=== PATIENT | female | born 1940 | race Caucasian/White ===

== ENCOUNTER 2018-08-13 23:12 | Inpatient (IN) | payer BC, OTHER ==
[~2018-08-13] VITALS: Ht 157.5 cm; Wt 52.2 kg
[~2018-08-13 23:12] MED LIST: CLON1TAB PO; DOXE50CA21 PO; ESTR2TAB PO; METO100T7 PO
[2018-08-13] MEDS ORDERED: IV NORMAL SALINE 500 ML BAG IV ONE (23:45)
[2018-08-13 23:58] LABS: BASOPHILS % (AUTO) 0.4 % (0.0-2.0); HEMATOCRIT 36.3 % (31.2-41.9); HEMOGLOBIN 12.1 g/dL (10.9-14.3); LYMPHOCYTES # (AUTO) 0.6 K/uL (20.0-40.0); LYMPHOCYTES % (AUTO) 5.6 % (20.5-51.5); MEAN CORPUSCULAR HEMOGLOBIN 30.7 uug (24.7-32.8); MEAN CORPUSCULAR HGB CONC 33 g/dL (32.3-35.6); MEAN CORPUSCULAR VOLUME 92.4 fL (75.5-95.3); MONOCYTES # (AUTO) 1.3 K/uL (2.0-10.0); MONOCYTES % (AUTO) 11.2 % (0.0-11.0); NEUTROPHILS # (AUTO) 9.5 K/uL (1.8-8.9); NEUTROPHILS % (AUTO) 82.8 % (38.5-71.5); PLATELET COUNT (AUTO) 305 K/uL (179-408); RED BLOOD CELL COUNT(AUTO) 3.93 MIL/uL (3.63-4.92); WHITE BLOOD COUNT (AUTO) 11.5 K/uL (3.8-11.8)
[2018-08-14 00:09] LABS: CARBON DIOXIDE 26 mmol/L (21-32); CHLORIDE 98 mmol/L (98-107); CREATININE 0.9 mg/dL (0.6-1.3); GLUCOSE 134 mg/dL (74-106); POTASSIUM 3.7 mmol/L (3.5-5.1); UREA NITROGEN, BLOOD 10 mg/dL (7-18)
[2018-08-14 00:15] LABS: ALANINE AMINOTRANSFERASE 25 U/L (14-59); ALKALINE PHOSPHATASE 89 U/L (50-136); ASPARTATE AMINOTRANSFERASE 25 U/L (15-37); BILIRUBIN,DIRECT 0.1 mg/dL (0.0-0.2); BILIRUBIN,TOTAL 0.4 mg/dL (0.2-1.0); TOTAL PROTEIN, SERUM 7.7 g/dL (6.4-8.2)
[2018-08-14 01:19] LABS: *BILIRUBIN,URIN NEGATIVE (NEGATIVE); *CLARITY,URINE CLEAR (CLEAR); *COLOR,URINE YELLOW (YELLOW); *KETONES,URINE NEGATIVE (NEGATIVE); *UROBILINOGEN,URINE 0.2 E.U./dl (NORMAL); LEUKOCYTE ESTERASE ,URINE NEGATIVE (NEGATIVE); NITRITE, URINE NEGATIVE (NEGATIVE); UGLUCOSE NEGATIVE (NEGATIVE)
[2018-08-14 01:22] LABS: *BLOOD, URINE TRACE (NEGATIVE)
[2018-08-14 01:25] LABS: RBC,URINE 0-3 /HPF (0-3); WBC,URINE 0-3 /HPF (0-3)
[2018-08-14 01:26] LABS: BACTERIA,URINE NONE SEEN /HPF (NONE SEEN); SQUAMOUS EPITHELIAL CELL,UR FEW /HPF (NONE SEEN)
[2018-08-14 01:42] LABS: *AMPHETAMINE, URINE NEGATIVE (NEGATIVE); *BARBITURATE, URINE POSITIVE (NEGATIVE); *CANNABINOID, URINE POSITIVE (NEGATIVE); *COCCAINE, URINE NEGATIVE (NEGATIVE); *OPIATE, URINE NEGATIVE (NEGATIVE); *PHENCYCLIDINE SCREEN,URINE NEGATIVE (NEGATIVE)
[2018-08-14] MEDS ORDERED: ACETAMINOPHEN ES 500 MG TABLET ONE (02:14)
[2018-08-14] MEDS ORDERED: Z GUARD REMEDY PASTE 57 GM TUBE TOP PRN (02:15)
[2018-08-14] MEDS ORDERED: ACETAMINOPHEN 325 MG TABLET PO PRN (02:15)
[2018-08-14] MEDS ORDERED: ACETAMINOPHEN 650 MG/20.3 ML LIQUID UDC PO ONE (02:15)
[2018-08-14] MEDS ORDERED: MAGNESIUM HYDROXIDE 30 ML LIQUID UDC PO PRN (02:15)
[2018-08-14] MEDS ORDERED: MORPHINE SULFATE 2 MG/1 ML DISP.SYRIN IV PRN (02:15)
[2018-08-14] MEDS ORDERED: ONDANSETRON 4 MG/2 ML VIAL IV PRN (02:15)
[2018-08-14] MEDS ORDERED: TEMAZEPAM 15 MG CAPSULE PO PRN (02:15)
[2018-08-14 03:00] VITALS: BP 152/81
[2018-08-14] MEDS: IV NS 1000 ML 1,000 ML IV PRN ×2 (03:38→18:40)
[2018-08-14] MEDS: HYDROCODONE/APAP 5-325MG TABLET PO PRN ×5 (03:54→20:30)
[2018-08-14] MEDS: PANTOPRAZOLE SODIUM 40 MG TABLET.DR PO SCH (06:09)
[2018-08-14 07:34] LABS: BASOPHILS # (AUTO) 0.1 K/uL (0.0-8.0); BASOPHILS % (AUTO) 0.9 % (0.0-2.0); EOSINOPHILS % (AUTO) 0.6 % (0.0-7.0); HEMATOCRIT 34.6 % (31.2-41.9); HEMOGLOBIN 11.6 g/dL (10.9-14.3); LYMPHOCYTES # (AUTO) 1.7 K/uL (20.0-40.0); LYMPHOCYTES % (AUTO) 25.2 % (20.5-51.5); MEAN CORPUSCULAR HEMOGLOBIN 31.4 uug (24.7-32.8); MEAN CORPUSCULAR HGB CONC 34 g/dL (32.3-35.6); MEAN CORPUSCULAR VOLUME 93.7 fL (75.5-95.3); MONOCYTES # (AUTO) 1.1 K/uL (2.0-10.0); MONOCYTES % (AUTO) 16.5 % (0.0-11.0); NEUTROPHILS # (AUTO) 3.9 K/uL (1.8-8.9); NEUTROPHILS % (AUTO) 56.8 % (38.5-71.5); PLATELET COUNT (AUTO) 301 K/uL (179-408); WHITE BLOOD COUNT (AUTO) 6.9 K/uL (3.8-11.8)
[2018-08-14 07:51] LABS: CARBON DIOXIDE 27 mmol/L (21-32); CHLORIDE 101 mmol/L (98-107); CHOLESTEROL 201 mg/dL (<200); CREATININE 0.9 mg/dL (0.6-1.3); GLUCOSE 102 mg/dL (74-106); HDL CHOLESTEROL 104 mg/dL (40-60); MAGNESIUM 1.7 mg/dL (1.8-2.4); PHOSPHOROUS 3.2 mg/dL (2.5-4.9); POTASSIUM 3.8 mmol/L (3.5-5.1); TRIGLYCERIDES 53 MG/DL (30-150); UREA NITROGEN, BLOOD 8 mg/dL (7-18)
[2018-08-14 08:20] LABS: THYROID STIMULATING HORMONE 1.316 mIU/mL (0.358-3.740)
[2018-08-14] MEDS: ASPIRIN 81 MG TAB.CHEW PO SCH (08:20)
[2018-08-14] MEDS: METOPROLOL SUCCINATE XL 50 MG TAB.SR.24H PO SCH (08:23)
[2018-08-14] MEDS: ENOXAPARIN SODIUM 40 MG/0.4 ML DISP.SYRIN SQ SCH (08:24)
[2018-08-14] MEDS ORDERED: MAGNESIUM SULFATE/D5W 100 ML IV SCH (08:30)
[2018-08-14 08:31] LABS: LYMPHOCYTES % (MANUAL) 27 % (20-40); MONOCYTES % (MANUAL) 16 % (2-10)
[2018-08-14 08:32] LABS: NEUTROPHILS % (MANUAL) 57 % (42-75)
[2018-08-14] MEDS: ESTRADIOL 1 MG TABLET PO SCH (08:32)
[2018-08-14 11:40] VITALS: BP 122/69
[2018-08-14 15:50] VITALS: BP 130/74
[2018-08-14 19:23] VITALS: BP 117/63
[2018-08-14] MEDS ORDERED: DOXEPIN 50 MG CAPSULE PO SCH (21:00)
[2018-08-14] MEDS ORDERED: DOXEPIN PO SCH ×2 (21:00)
[2018-08-14 23:38] VITALS: BP 127/72
[2018-08-15 03:27] VITALS: BP 137/83
[2018-08-15] MEDS: HYDROCODONE/APAP 5-325MG TABLET PO PRN ×3 (04:23→12:37)
[2018-08-15 06:44] LABS: BASOPHILS # (AUTO) 0.1 K/uL (0.0-8.0); BASOPHILS % (AUTO) 1.1 % (0.0-2.0); EOSINOPHILS # (AUTO) 0.2 K/uL (0.0-0.7); EOSINOPHILS % (AUTO) 2.5 % (0.0-7.0); HEMOGLOBIN 11.2 g/dL (10.9-14.3); LYMPHOCYTES # (AUTO) 1.1 K/uL (20.0-40.0); LYMPHOCYTES % (AUTO) 15.5 % (20.5-51.5); MEAN CORPUSCULAR HEMOGLOBIN 31.6 uug (24.7-32.8); MEAN CORPUSCULAR HGB CONC 34 g/dL (32.3-35.6); MEAN CORPUSCULAR VOLUME 92.9 fL (75.5-95.3); MONOCYTES # (AUTO) 0.8 K/uL (2.0-10.0); MONOCYTES % (AUTO) 10.8 % (0.0-11.0); NEUTROPHILS % (AUTO) 70.1 % (38.5-71.5); PLATELET COUNT (AUTO) 266 K/uL (179-408); RED BLOOD CELL COUNT(AUTO) 3.55 MIL/uL (3.63-4.92); WHITE BLOOD COUNT (AUTO) 7.1 K/uL (3.8-11.8)
[2018-08-15 06:48] LABS: CARBON DIOXIDE 26 mmol/L (21-32); CHLORIDE 106 mmol/L (98-107); CREATININE 0.7 mg/dL (0.6-1.3); GLUCOSE 99 mg/dL (74-106); POTASSIUM 3.7 mmol/L (3.5-5.1); UREA NITROGEN, BLOOD 8 mg/dL (7-18)
[2018-08-15] MEDS: PANTOPRAZOLE SODIUM 40 MG TABLET.DR PO SCH (07:36)
[2018-08-15] MEDS: ESTRADIOL 1 MG TABLET PO SCH (09:00)
[2018-08-15] MEDS: ASPIRIN 81 MG TAB.CHEW PO SCH (09:06)
[2018-08-15] MEDS: METOPROLOL SUCCINATE XL 50 MG TAB.SR.24H PO SCH (09:06)
[2018-08-15] MEDS: ENOXAPARIN SODIUM 40 MG/0.4 ML DISP.SYRIN SQ SCH (09:12)
[2018-08-15] MEDS: IV NS 1000 ML 1,000 ML IV PRN (10:00)
[2018-08-15 11:33] VITALS: BP 143/68
[2018-08-15 15:20] VITALS: BP 137/71
== END 2018-08-15 15:15 | disposition home or self-care (01) | DRG 74 ==
LOC: ER 23:13 → TELE3 08-14 02:36
PROVIDERS: ADMIT Nurse Practitioner Acute Care; ATTEND Nurse Practitioner Acute Care
DX: G90.8 Other disorders of autonomic nervous system (principal); E87.1 Hypo-osmolality and hyponatremia; E86.0 Dehydration; Z87.891 Personal history of nicotine dependence; Z96.642 Presence of left artificial hip joint; F41.9 Anxiety disorder, unspecified; Z79.899 Other long term (current) drug therapy; E83.42 Hypomagnesemia; G43.909 Migraine, unspecified, not intractable, without status migrainosus; I10 Essential (primary) hypertension; F32.9 Major depressive disorder, single episode, unspecified
CPT/HCPCS: 36415; 70030-TC; 70450; 71045; 72125; 80307; 83735; 84100; 84443; 85025; 85730; 86850; 86900; 86901; 93005; 93307; 97110; 97116; 97530; A4663; A9150; G0378; J1650; J3475; J7030; J7040; J8499

== ENCOUNTER 2018-09-13 03:11 | Emergency (ER) | payer BC, OTHER ==
[~2018-09-13] VITALS: Ht 157.5 cm; Wt 49.0 kg
[2018-09-13] MEDS ORDERED: [UNRECOGNIZED DRUG - CODE] PO (03:28)
--- NOTE | 2018-09-13 03:30 | NUR ---
PATIENT IN BED RESTING ,NO RESPIRATORY DISTRESS BREATHING EVEN AND UNLABORED . ON AND OFF ASLEEP .
--- NOTE | 2018-09-13 03:30 | NUR ---
PATIENT BIB BY AMBULANCE FOR RIGHT FINGER AND STERNAL PAIN S/P HOME DOOR VS FINGER/CHEST X2 DAYS .CHECKED RIGT RING FINGER WITH BRUISING AND PER PATIENT PAIN WHEN MOVING THE HAND .
[2018-09-13] MEDS ORDERED: HYDROCODONE/APAP 10-325 MG TABLET PO ONE (03:45)
[2018-09-13] MEDS ORDERED: HYDROCODONE/APAP 10-325 MG TABLET ONE (03:50)
--- NOTE | 2018-09-13 05:00 | NUR ---
CALLED XRAY X2 STILL WATING FOR RESULTS OF CHEST AND XR OF THE RIGHT FINGER .
--- NOTE | 2018-09-13 06:49 | NUR ---
PATIENT FOR D/C AND PER PATIENT SHE NEEDS A RIDE BACK HOME ,CALLED NURSING VECTOR CONTR[employer] SPECIALIST AND GIVEN PATIENT A TAXI VOUCHER .
[2018-09-13 06:59] VITALS: BP 119/73
--- NOTE | 2018-09-13 07:05 | NUR ---
Patient discharged to home in stable conditon. Written and verbal after care instructions given. Patient verbalizes understanding of instructions. Patient was provided with taxi voucher and has a taxi arranged for transportation to home. Patient left with discharge /exit care instructions along with valuables and personal belongings. Patient denies any respiratory distress and patient VS in stable condition.
== END 2018-09-13 07:07 | disposition home or self-care (01) ==
LOC: ER 03:11
DX: S62.634A Displaced fracture of distal phalanx of right ring finger, initial encounter for closed fracture (principal); S20.219A Contusion of unspecified front wall of thorax, initial encounter; I10 Essential (primary) hypertension; F17.200 Nicotine dependence, unspecified, uncomplicated; Z88.8 Allergy status to other drugs, medicaments and biological substances; Z79.899 Other long term (current) drug therapy; W23.0XXA Caught, crushed, jammed, or pinched between moving objects, initial encounter; Y93.89 Activity, other specified; Y92.89 Other specified places as the place of occurrence of the external cause; Y99.8 Other external cause status
CPT/HCPCS: 71045; 73140; 93005; A4663

== ENCOUNTER 2019-01-03 16:15 | Emergency (ER) | payer BC ==
[~2019-01-03] VITALS: Ht 160 cm; Wt 52.2 kg
[~2019-01-03 16:15] MED LIST changes: -ESTR2TAB PO; +[UNRECOGNIZED DRUG - CODE] PO
[2019-01-03 17:15] LABS: BASOPHILS # (AUTO) 0.1 K/uL (0.0-8.0); BASOPHILS % (AUTO) 0.6 % (0.0-2.0); EOSINOPHILS # (AUTO) 0.2 K/uL (0.0-0.7); EOSINOPHILS % (AUTO) 1.4 % (0.0-7.0); HEMATOCRIT 35.1 % (31.2-41.9); HEMOGLOBIN 11.6 g/dL (10.9-14.3); LYMPHOCYTES # (AUTO) 0.9 K/uL (20.0-40.0); LYMPHOCYTES % (AUTO) 7.8 % (20.5-51.5); MEAN CORPUSCULAR HEMOGLOBIN 30.4 uug (24.7-32.8); MEAN CORPUSCULAR HGB CONC 33 g/dL (32.3-35.6); MEAN CORPUSCULAR VOLUME 91.9 fL (75.5-95.3); MONOCYTES # (AUTO) 1.1 K/uL (2.0-10.0); MONOCYTES % (AUTO) 9.9 % (0.0-11.0); NEUTROPHILS # (AUTO) 9.2 K/uL (1.8-8.9); NEUTROPHILS % (AUTO) 80.3 % (38.5-71.5); PLATELET COUNT (AUTO) 206 K/uL (179-408); RED BLOOD CELL COUNT(AUTO) 3.82 MIL/uL (3.63-4.92); WHITE BLOOD COUNT (AUTO) 11.4 K/uL (3.8-11.8)
--- NOTE | 2019-01-03 17:16 | NUR ---
BIB [facility]03 FOR S/P FALL. PATIENT IS AWAKE AND ALERT. PLACED ON A MONITOR.
[2019-01-03 17:20] LABS: CREATININE 0.9 mg/dL (0.6-1.3); POTASSIUM 4.2 mmol/L (3.5-5.1)
[2019-01-03 17:25] LABS: BILIRUBIN,TOTAL 0.7 mg/dL (0.2-1.0); TOTAL PROTEIN, SERUM 7.3 g/dL (6.4-8.2)
[2019-01-03] MEDS ORDERED: ACETAMINOPHEN ES 500 MG TABLET PO ONE (18:30)
--- NOTE | 2019-01-03 18:31 | NUR ---
PATIENT STATES HER LEGS FEEL VERY WEAK. WE WHEELCHAIRED HER TO THE RESTROOM WHERE SHE WAS ABLE TO VOID URINE.
[2019-01-03] MEDS ORDERED: ACETAMINOPHEN ES 500 MG TABLET ONE (18:33)
--- NOTE | 2019-01-03 19:17 | NUR ---
Hand off report given to Coty PAK
--- NOTE | 2019-01-03 19:30 | NUR ---
PENDING CALL FROM [facility] MOLD CAR PUSHER, (MISSY): POSSIBLE TRANSFER TO [facility] (DR KAUFMAN) OTHERWISE, PT WILL BE ADMITTED UP FOR A TELE BED AT [address] [place] [address] ABLE TO SPEAK W/ DR KAUFMAN
[2019-01-03] MEDS ORDERED: MORPHINE SULFATE 2 MG/1 ML DISP.SYRIN IM ONE (20:00)
[2019-01-03] MEDS ORDERED: MORPHINE SULFATE 2 MG/1 ML DISP.SYRIN ONE ×2 (20:08→22:32)
--- NOTE | 2019-01-03 21:55 | NUR ---
RECEIVED CALL BACK FROM [facility]: PT WILL BE ADMITTED TO [facility] UNDER DR KAUFMAN RM [id number]-A PT ACKNOWLEDGED
--- NOTE | 2019-01-03 22:23 | NUR ---
HAND OFF GIVEN TO SAVANNAH PAK [facility] PT WILL BE TRANSFERED TODAY ETA AMBULANCE: [id number] TRANSFER FORM AND CONSENT SIGNED
[2019-01-03] MEDS ORDERED: ONDANSETRON 4 MG/2 ML VIAL IV ONE (22:30)
[2019-01-03] MEDS ORDERED: MORPHINE SULFATE 2 MG/1 ML DISP.SYRIN IV ONE (22:30)
[2019-01-03] MEDS ORDERED: ONDANSETRON 4 MG/2 ML VIAL ONE (22:32)
[2019-01-03 22:39] LABS: *BILIRUBIN,URIN NEGATIVE (NEGATIVE); *BLOOD, URINE 2+ (NEGATIVE); *CLARITY,URINE CLEAR (CLEAR); *COLOR,URINE YELLOW (YELLOW); *KETONES,URINE NEGATIVE (NEGATIVE); *UROBILINOGEN,URINE 0.2 E.U./dl (NORMAL); LEUKOCYTE ESTERASE ,URINE NEGATIVE (NEGATIVE); NITRITE, URINE NEGATIVE (NEGATIVE); UGLUCOSE NEGATIVE (NEGATIVE)
[2019-01-03 22:52] LABS: BACTERIA,URINE NONE SEEN /HPF (NONE SEEN); SQUAMOUS EPITHELIAL CELL,UR FEW /HPF (NONE SEEN); WBC,URINE 0-3 /HPF (0-3)
--- NOTE | 2019-01-03 23:30 | NUR ---
CALLED AMBULANCE SERVICE. CONTINUITY PERSON STATES DELAY NEW ETA: 12MN UPDATED ER TEAM UPDATED RECEIV[facility]
--- NOTE | 2019-01-04 00:22 | NUR ---
HAND OFF AND SBAR GIVEN TO EMT PT TRANSPORTED VIA GURNEY, SIDERAILSX2 UP, BED AT LOWEST POSITION G20 SALINE LOCK INTACT TO L AC Patient Tranfers to outside Facility Physician: MANDEEP LUBIN Location: [facility] Addendum: 01/04/19 at 0024 by MARICASTIL BETHANY LEAHY W/ PT
== END 2019-01-04 00:35 | disposition short-term general hospital (02) ==
LOC: ER 16:18
DX: S62.511A Displaced fracture of proximal phalanx of right thumb, initial encounter for closed fracture (principal); R53.1 Weakness; F41.9 Anxiety disorder, unspecified; F32.9 Major depressive disorder, single episode, unspecified; F17.200 Nicotine dependence, unspecified, uncomplicated; Z88.8 Allergy status to other drugs, medicaments and biological substances; Z79.899 Other long term (current) drug therapy; W19.XXXA Unspecified fall, initial encounter; Y93.89 Activity, other specified; Y92.89 Other specified places as the place of occurrence of the external cause; Y99.8 Other external cause status
CPT/HCPCS: 36415; 70450; 73140; 73551; 80053; 81000; 81001; 85025; 85610; 87086; 93005; 96372; 96374; 96375; 99285; J2270 ×2; J2405; A4663; A9150

== ENCOUNTER 2019-07-04 12:07 | Emergency (ER) | payer BC, MEDICAID ==
[~2019-07-04] VITALS: Ht 157.5 cm; Wt 52.2 kg
[2019-07-04 12:43] LABS: BASOPHILS # (AUTO) 0.1 K/uL (0.0-8.0); EOSINOPHILS # (AUTO) 0.1 K/uL (0.0-0.7); EOSINOPHILS % (AUTO) 1.3 % (0.0-7.0); LYMPHOCYTES # (AUTO) 1.7 K/uL (20.0-40.0); LYMPHOCYTES % (AUTO) 17.3 % (20.5-51.5); MEAN CORPUSCULAR HEMOGLOBIN 30.7 uug (24.7-32.8); MEAN CORPUSCULAR HGB CONC 33 g/dL (32.3-35.6); MEAN CORPUSCULAR VOLUME 92.3 fL (75.5-95.3); MONOCYTES # (AUTO) 1.3 K/uL (2.0-10.0); MONOCYTES % (AUTO) 12.8 % (0.0-11.0); NEUTROPHILS # (AUTO) 6.7 K/uL (1.8-8.9); NEUTROPHILS % (AUTO) 67.6 % (38.5-71.5); PLATELET COUNT (AUTO) 309 K/uL (179-408); WHITE BLOOD COUNT (AUTO) 9.9 K/uL (3.8-11.8)
--- NOTE | 2019-07-04 12:44 | NUR ---
PT IS IN ROOM #2B. DR PERSAUD EVALUATED THE PT.
[2019-07-04 12:48] LABS: POTASSIUM 4.2 mmol/L (3.5-5.1)
[2019-07-04 12:49] LABS: *BILIRUBIN,URIN NEGATIVE (NEGATIVE); *BLOOD, URINE NEGATIVE (NEGATIVE); *CLARITY,URINE CLOUDY (CLEAR); *COLOR,URINE YELLOW (YELLOW); *KETONES,URINE NEGATIVE (NEGATIVE); *UROBILINOGEN,URINE 0.2 E.U./dl (NORMAL); LEUKOCYTE ESTERASE ,URINE NEGATIVE (NEGATIVE); NITRITE, URINE NEGATIVE (NEGATIVE); PH,URINE 5.5 (5.0-8.0); UGLUCOSE NEGATIVE (NEGATIVE)
[2019-07-04 12:54] LABS: BILIRUBIN,DIRECT 0.1 mg/dL (0.0-0.2); BILIRUBIN,TOTAL 0.2 mg/dL (0.2-1.0); TOTAL PROTEIN, SERUM 7.6 g/dL (6.4-8.2)
[2019-07-04 12:56] LABS: BACTERIA,URINE MANY /HPF (NONE SEEN); RBC,URINE 0-3 /HPF (0-3); SQUAMOUS EPITHELIAL CELL,UR MANY /HPF (NONE SEEN); WBC,URINE 0-3 /HPF (0-3)
[2019-07-04] MEDS ORDERED: HYDROCODONE/APAP 5-325MG TABLET PO ONE (13:00)
[2019-07-04] MEDS ORDERED: HYDROCODONE/APAP 5-325MG TABLET ONE (13:07)
[2019-07-04] MEDS ORDERED: IV NORMAL SALINE 1000 ML BAG IV ONE (13:30)
[2019-07-04] MEDS ORDERED: MECLIZINE HCL 25 MG TABLET ONE ×2 (13:58→13:59)
[2019-07-04] MEDS ORDERED: MECLIZINE HCL 25 MG TABLET PO ONE (14:00)
[2019-07-04] MEDS ORDERED: ONDANSETRON 4 MG/2 ML VIAL IV ONE (14:30)
[2019-07-04] MEDS ORDERED: MORPHINE SULFATE 4 MG/1 ML DISP.SYRIN IV ONE (14:30)
[2019-07-04] MEDS ORDERED: MORPHINE SULFATE 4 MG/1 ML DISP.SYRIN ONE (14:40)
[2019-07-04] MEDS ORDERED: ONDANSETRON 4 MG/2 ML VIAL ONE (14:40)
--- NOTE | 2019-07-04 17:54 | NUR ---
REPORT WAS GIVEN TO RN LACTATION COLLIN.
--- NOTE | 2019-07-04 18:12 | NUR ---
REPORT WAS GIVEN TO [facility] RN HIMA ([phone]). PT WAS TRANSFERED TO TELEMETRY ROOM #208A AT [facility]IA [facility]. ADMITTING MD IS DR STEELE. REPORT WAS GIVEN TO [facility] RNMilagros
== END 2019-07-04 18:35 | disposition short-term general hospital (02) ==
LOC: ER 12:07
DX: R55 Syncope and collapse (principal); H81.10 Benign paroxysmal vertigo, unspecified ear; G43.909 Migraine, unspecified, not intractable, without status migrainosus; Z96.643 Presence of artificial hip joint, bilateral; Z87.891 Personal history of nicotine dependence; J98.11 Atelectasis; I51.7 Cardiomegaly; I70.0 Atherosclerosis of aorta
CPT/HCPCS: 36415; 70450; 71045; 80048; 80076; 81001; 83880; 84484; 85025; 85730; 87086; 93005; 96361; 96374; 96375; 99285; J2270; J2405; 70030-TC; J7030; J8597